=== PATIENT | male | born 1990 | race Caucasian/White ===

== ENCOUNTER 2020-12-18 16:55 | Emergency (ER) | payer OTHER ==
--- NOTE | 2020-12-18 17:27 | EDM.PDOC ---
ED HPI GENERAL MEDICAL PROBLEM - General Chief Complaint: Syncope Stated Complaint: SYNCOPE Time Seen by Provider: 12/18/20 17:00 Source of Information: Reports: Patient, RN Notes Reviewed History Limitations: Reports: No Limitations - History of Present Illness INITIAL COMMENTS - FREE TEXT/NARRATIVE: Patient is a 30-year-old male who presents to the ED for the evaluation of his presyncope. Patient notes that he has been having issues with this for about 1 to 2 months now. He notes there was an instance in the morning, where he got up and went to use the bathroom, he felt a little bit lightheaded, and ended up passing out for roughly 10 to 15 seconds. States that he was able to realize he was feeling syncopal and lowered himself to the ground. He went to the walk-in clinic at that time, and was told that he got up from bed too fast. He states he did not do any sort of labs or anything like that. For the last week however he had an episode on Wednesday, where he felt syncopal again, and he went home from work at that time. The woman present in the room states that they went to [facility] and states that he got some IV fluids. Patient stayed home from work on Wednesday, and had to have a resultant Covid test due to him staying home and that was negative. He states that he went to work again today, and he began to feel some of the same symptoms like he was going to pass out, where he had to sit down. He felt like his vision was going out, and he felt somewhat numb and tingly all over. States that he has been trying to drink fluids, especially yesterday. He has not been sick prior to this. And other than this last month or 2 he is not had issues like this before. He has had no fevers or chills, cough/shortness of breath, nausea/vomiting/diarrhea. He denies any chest pain. He does note that he has a follow-up appointment with Manju Cheung on Wednesday for this. Patient states that he drinks 2 cups of coffee in the morning, and 3 bubbler's which have about 70 mg of caffeine in them each equivalent to a cup of coffee. He states that he drinks socially on the weekends. He notes that he did not have breakfast this morning but he did have breakfast on Wednesday. He does also note history of a heart murmur, but states when he had these episodes that he felt dreamy, and that he had no palpitations in his chest. - Related Data Allergies Allergy/AdvReac Type Severity Reaction Status Date / Time amoxicillin Allergy Cannot Verified 12/18/20 17:08 Remember cefaclor [From Ceclor] Allergy Cannot Verified 12/18/20 17:08 Remember Home Meds: Home Meds . [No Known Home Meds] 12/18/20 [History] Past Medical History Cardiovascular History: Reports: Heart Murmur Social & Family History - Tobacco Use Tobacco Use Status *Q: Never Tobacco User - Recreational Drug Use Recreational Drug Use: No ED ROS GENERAL - Review of Systems Review Of Systems: Comprehensive ROS is negative, except as noted in HPI. - Physical Exam Exam: See Below Exam Limited By: No Limitations General Appearance: Alert, WD/WN, No Apparent Distress Eye Exam: Bilateral Eye: EOMI, Normal Inspection, PERRL Respiratory/Chest: No Respiratory Distress, Lungs Clear, Normal Breath Sounds, No Accessory Muscle Use, Chest Non-Tender Cardiovascular: Normal Peripheral Pulses, Regular Rate, Rhythm, No Edema GI/Abdominal: Normal Bowel Sounds, Soft, Non-Tender, No Distention, No Mass Neuro Exam (Abbreviated): Alert, Oriented, Normal Cognition, No Motor/Sensory Deficits Extremities: Normal Inspection, Normal Capillary Refill Psychiatric: Normal Affect, Normal Mood Skin Exam: Warm, Dry, Intact, Normal Color, No Rash Course - Vital Signs Last Recorded V/S: Last Vital Signs Temp 96.5 F L 12/18/20 17:05 Pulse 75 12/18/20 17:05 Resp 15 12/18/20 17:05 BP 130/93 H 12/18/20 17:05 Pulse Ox 98 12/18/20 17:05 Orthostatic Blood Pressure [ 135/78 Standing] Orthostatic Blood Pressure [ 143/70 Supine] - Orders/Labs/Meds Orders: Active Orders 24 hr Category Date Time Status Holter Monitor 48 Hours [RC] .PRN Care 12/18/20 18:30 Active Orthostatic Vital Signs [RC] ASDIRECTED Care 12/18/20 17:26 Active Labs: Laboratory Tests 12/18/20 12/18/20 Range/Units 17:43 17:43 WBC 6.86 (4.23-9.07) K/mm3 RBC 5.53 (4.63-6.08) M/mm3 Hgb 16.0 (13.7-17.5) gm/dl Hct 47.2 (40.1-51.0) % MCV 85.4 (79.0-92.2) fl MCH 28.9 (25.7-32.2) pg MCHC 33.9 (32.2-35.5) g/dl RDW Std Deviation 37.6 (35.1-43.9) fL Plt Count 231 (163-337) K/mm3 MPV 10.7 (9.4-12.3) fl Neut % (Auto) 58.1 (34.0-67.9) % Lymph % (Auto) 32.4 (21.8-53.1) % [place] % (Auto) 7.0 (5.3-12.2) % Eos % (Auto) 2.0 (0.8-7.0) Baso % (Auto) 0.4 (0.1-1.2) % Neut # (Auto) 3.98 (1.78-5.38) K/mm3 Lymph # (Auto) 2.22 (1.32-3.57) K/mm3 [place] # (Auto) 0.48 (0.30-0.82) K/mm3 Eos # (Auto) 0.14 (0.04-0.54) K/mm3 Baso # (Auto) 0.03 (0.01-0.08) K/mm3 Sodium 143 (136-145) mEq/L Potassium 3.7 (3.5-5.1) mEq/L Chloride 105 (98-107) mEq/L Carbon Dioxide 24 (21-32) mEq/L Anion Gap 17.7 H (5-15) BUN 18 (7-18) mg/dL Creatinine 1.3 (0.7-1.3) mg/dL Est Cr Clr Drug Dosing 79.65 mL/min Estimated GFR (MDRD) > 60 (>60) mL/min BUN/Creatinine Ratio 13.8 L (14-18) Glucose 138 H (74-106) mg/dL Calcium 9.2 (8.5-10.1) mg/dL Total Bilirubin 0.4 (0.2-1.0) mg/dL AST 20 (15-37) U/L ALT 35 (16-63) U/L Alkaline Phosphatase 75 (46-116) U/L Total Protein 7.3 (6.4-8.2) g/dl Albumin 4.1 (3.4-5.0) g/dl Globulin 3.2 gm/dL Albumin/Globulin Ratio 1.3 (1-2) TSH 3rd Generation 2.466 (0.358-3.74) uIU/mL - Re-Assessments/Exams Free Text/Narrative Re-Assessment/Exam: 12/18/20 17:28 Patient presents to the ED for his syncopal or presyncopal issues. We will do basic labs for today's visit, his heart rhythm on the monitoring coordinator was normal sinus throughout the entire visit, no arrhythmia was identified while being in the room. I do believe we can hold off on EKG at this time but likely send him home for possible Holter monitoring for prolonged cardiac monitoring. 12/18/20 18:30 Labs have resulted and are essentially normal, will go ahead and send the patient home with a Holter monitor and have him follow-up with Manju Cheung for results and ongoing management. Departure - Departure Time of Disposition: 18:31 Disposition: Home, Self-Care 01 Condition: Good Clinical Impression: Pre-syncope - Discharge Information *PRESCRIPTION DRUG MONITORING PROGRAM REVIEWED*: No *COPY OF PRESCRIPTION DRUG MONITORING REPORT IN PATIENT ALISTAIR: No Instructions: Near-Syncope, [id number] Referrals: Manju Cheung PA-C [Primary Care Provider] - Forms: ED Department Discharge, ED Return to Work/School Form Additional Instructions: You were seen in this ER today for your presyncope. Laboratory evaluation done at today's visit demonstrates no focal abnormalities. You have been sent home with a 48-hour Holter monitor, please wear this for the next 48 hours for ongoing cardiac management to see if this is possibly due to cardiac etiology, and for further investigation. Go home, rest relax and increase your oral fluid intake over the next few days. Follow-up with Manju Cheung at your next appointment. Please come back to the ER if symptoms change or worsen. Sepsis Event Note (ED) - Evaluation Sepsis Screening Result: No Definite Risk - Focused Exam Vital Signs: Vital Signs Temp Pulse Resp BP Pulse Ox 12/18/20 17:05 96.5 F L 75 15 130/93 H 98 - My Orders Last 24 Hours: My Active Orders 12/18/20 17:26 Orthostatic Vital Signs [RC] ASDIRECTED 12/18/20 18:30 Holter Monitor 48 Hours [RC] .PRN - Assessment/Plan Last 24 Hours: My Active Orders 12/18/20 17:26 Orthostatic Vital Signs [RC] ASDIRECTED 12/18/20 18:30 Holter Monitor 48 Hours [RC] .PRN
== END 2020-12-18 18:50 | disposition home or self-care (01) ==
LOC: JD.ED 16:55
DX: R55 Syncope and collapse (principal); Z88.0 Allergy status to penicillin; Z88.1 Allergy status to other antibiotic agents
CPT/HCPCS: 36415; 80053; 84443; 85025; 93225; 93226; 99283; 99284